=== PATIENT | female | born 2000 | race African-American/Black ===

== ENCOUNTER 2021-06-17 18:16 | Observation (INO) ==
[2021-06-17 20:05] LABS: Basophils % 0.4 % (0.0-0.8); Eosinophils # 0.3 10*3/uL (0.0-0.87); Eosinophils % 2.6 % (0.00-10.9); Hematocrit 40.3 VOL% (35.7-47.0); Hemoglobin 13.4 GM/DL (12.0-16.0); Immature Granulocytes % 0.3 %; Immature Granulocytes Absolute 0.03 #; Lymphocytes # 2.4 10*3/uL (1.4-4.0); Lymphocytes % 22.5 % (21.3-54.2); Mean Corpuscular HGB Conc 33.3 GM/DL (32-36); Mean Corpuscular Volume 91.4 FL (87-102); Mean Platelet Volume 10.6 FL (9.6-12.0); Monocytes % 8.2 % (1.7-12.7); Platelet Count 216 T/CUMM (130-400); Red Blood Count 4.41 MC/CUMM (3.8-5.5); Red Cell Distribution Width 12.8 % (9.3-17.3); White Blood Count 10.6 T/CUMM (4-12)
[2021-06-17 20:14] LABS: Bilirubin,Urine Negative (Negative); Blood, Urine Negative (Negative); Glucose,Urine (UA) Negative (Negative); Ketones,Urine 80 mg/dL (Negative); Mucus,Urine Many /LPF (Occasional); Nitrite,Urine Negative (Negative); Protein,Urine 30 MG/DL; Squamous Epithelial Cell,Urine Moderate /HPF (0-10); Urine Appearance CLOUDY (Clear); Urine Color Yellow (Yellow); Urine Specific Gravity 1.024 (1.001-1.035); Urine Urobilinogen < 2.0 EU/DL (0.2-1.0)
[2021-06-17 20:32] LABS: Alanine Aminotransferase 16 U/L (13-56); Albumin 3.7 G/DL (3.4-5.0); Alkaline Phosphatase 87 U/L (45-117); Aspartate Amino Transferase 20 U/L (0-37); Blood Urea Nitrogen 6 MG/DL (7-18); Calcium 9.4 MG/DL (8.5-10.1); Carbon Dioxide 26 MMOL/L (21-32); Estimated Glom Filtration Rate 140 ML/MIN; Glucose 78 MG/DL (74-106); Osmolality,Calculated 264.2 MOS/KG (273-304); Potassium 3.3 MMOL/L (3.5-5.1); Sodium 134 MMOL/L (136-145); Total Protein 8.4 G/DL (6.4-8.2)
[2021-06-17] MEDS ORDERED: POTASSIUM CHLORIDE 20 MEQ TABLET PO STA (20:34)
[2021-06-17 21:08] LABS: Barbiturates Screen,Urine Negative (Negative); Benzodiazepines Screen,Urine Negative (Negative); Cannabinoid Screen,Urine Positive (Negative); Opiate Screen,Urine Negative (Negative); Phencyclidine Screen,Urine Negative (Negative)
[2021-06-17 21:50] LABS: Acetaminophen < 2.0 UG/ML (10-30); Salicylate < 2.8 MG/DL (2.8-20)
[2021-06-17] MEDS ORDERED: DEXTROSE 50% 25 GM/50 ML VIAL IV PRN (23:49)
[2021-06-17] MEDS ORDERED: GLUCAGON 1 MG VIAL IM PRN (23:49)
[2021-06-18 06:56] LABS: Calcium 8.6 MG/DL (8.5-10.1); Potassium 3.7 MMOL/L (3.5-5.1)
[2021-06-18] MEDS ORDERED: busPIRone 5 MG TABLET PO SCH (11:00)
[2021-06-18 17:18] VITALS: BP 112/65
== END 2021-06-18 17:00 | disposition home or self-care (01) ==
LOC: EDUNIT# → EDBD → N.EDINP 18:16 → N.ED 18:16 → N.OB 06-18 00:37
PROVIDERS: ADMIT Internal Medicine; ATTEND Internal Medicine

== ENCOUNTER 2021-10-21 07:05 | Inpatient (IN) ==
[2021-10-21] MEDS ORDERED: MEPERIDINE 50 MG/1 ML VIAL IV PRN (07:41)
[2021-10-21] MEDS ORDERED: BUTORPHANOL 2 MG/ML VIAL IV PRN (07:41)
[2021-10-21] MEDS ORDERED: ONDANSETRON 4 MG/2 ML VIAL IV PRN ×2 (07:41→14:24)
[2021-10-21] MEDS ORDERED: FAMOTIDINE 20 MG/2 ML VIAL IV ONE (07:43)
[2021-10-21] MEDS ORDERED: ePHEDrine 50 MG/ML VIAL IV PRN (07:43)
[2021-10-21] MEDS ORDERED: hydrOXYzine HCL 25 MG/1 ML VIAL IM PRN (07:43)
[2021-10-21] MEDS ORDERED: PROMETHAZINE 25 MG/1 ML VIAL IM ONE (07:43)
[2021-10-21] MEDS ORDERED: CITRIC ACID/SODIUM CITRATE 30 ML UDCUP PO ONE (07:43)
[2021-10-21] MEDS ORDERED: NALOXONE 0.4 MG/ML VIAL IV PRN (07:43)
[2021-10-21] MEDS ORDERED: diphenhydrAMINE 50 MG/1 ML VIAL IV PRN ×2 (07:43)
[2021-10-21] MEDS ORDERED: ONDANSETRON 4 MG/2 ML VIAL IV ONE (07:43)
[2021-10-21] MEDS ORDERED: LACTATED RINGERS 1,000 ML IV ONE (07:43)
[2021-10-21 07:55] LABS: Basophils % 0.1 % (0.0-0.8); Eosinophils # 0.2 10*3/uL (0.0-0.87); Eosinophils % 1.9 % (0.00-10.9); Hematocrit 34.3 VOL% (35.7-47.0); Immature Granulocytes % 0.3 %; Immature Granulocytes Absolute 0.03 #; Lymphocytes # 2.1 10*3/uL (1.4-4.0); Mean Corpuscular HGB Conc 32.1 GM/DL (32-36); Mean Corpuscular Volume 86.2 FL (87-102); Mean Platelet Volume 10.6 FL (9.6-12.0); Monocytes % 9.4 % (1.7-12.7); Neutrophils % 66.3 % (38.7-73.9); Platelet Count 171 T/CUMM (130-400); Red Blood Count 3.98 MC/CUMM (3.8-5.5); Red Cell Distribution Width 14.2 % (9.3-17.3); White Blood Count 9.5 T/CUMM (4-12)
[2021-10-21] MEDS ORDERED: fentaNYL 2 MCG/ROPIV 0.2% EPID 100 ML EPIDURAL SCH (08:00)
[2021-10-21] MEDS ORDERED: LACTATED RINGERS 1,000 ML IV SCH (08:00)
[2021-10-21 08:12] LABS: Alanine Aminotransferase 22 U/L (13-56); Albumin 2.8 G/DL (3.4-5.0); Alkaline Phosphatase 174 U/L (45-117); Aspartate Amino Transferase 20 U/L (0-37); Bilirubin,Total < 0.39 MG/DL (0.20-1.00); Blood Urea Nitrogen 10 MG/DL (7-18); Calcium 8.6 MG/DL (8.5-10.1); Carbon Dioxide 22 MMOL/L (21-32); Estimated Glom Filtration Rate 140 ML/MIN; Glucose 78 MG/DL (74-106); Potassium 3.8 MMOL/L (3.5-5.1); Sodium 136 MMOL/L (136-145); Total Protein 7.2 G/DL (6.4-8.2)
[2021-10-21] MEDS ORDERED: OXYTOCIN/LR 20 UNIT/1,000 ML BAG IV SCH (09:30)
[2021-10-21] MEDS ORDERED: METHYLERGONOVINE 0.2 MG/1 ML AMP ONE (11:24)
[2021-10-21] MEDS ORDERED: TRANEXAMIC ACID 1,000 MG/10 ML VIAL ONE (11:24)
[2021-10-21] MEDS ORDERED: miSOPROStoL 200 MCG TABLET ONE (11:24)
[2021-10-21] MEDS ORDERED: OXYTOCIN/LR 0 UNIT/0 ML BAG IV ONE (11:24)
[2021-10-21] MEDS ORDERED: SODIUM CHLORIDE 0.9% 0 ML IV ONE (11:24)
[2021-10-21] MEDS ORDERED: CARBOPROST TROMETHAMINE 250 MCG/ML AMP IM ONE (11:25)
[2021-10-21] MEDS ORDERED: LIDOCAINE 1% 50 ML VIAL ONE (11:26)
[2021-10-21 11:57] LABS: Cord Arterial Blood HCO3 21.5 MMOL/L
[2021-10-21 11:59] LABS: Cord Venous Blood HCO3 22.9 MMOL/L; Cord Venous Blood PCO2 50.3 MMHG; Cord Venous Blood PO2 27.4
[2021-10-21] MEDS ORDERED: MEASLES/MUMPS/RUBELLA VACCINE 0.5 ML VIAL SUBCUT ONE (14:24)
[2021-10-21] MEDS ORDERED: ACETAMINOPHEN 325 MG TABLET PO PRN (14:24)
[2021-10-21] MEDS ORDERED: OXYTOCIN/LR 20 UNIT/1,000 ML BAG IV ONE (14:24)
[2021-10-21] MEDS ORDERED: BISACODYL 10 MG SUPP RECTAL PRN (14:24)
[2021-10-21] MEDS ORDERED: HYDROCORTISONE 2.5% RECTAL CREAM 30 GM TUBE TOP PRN (14:24)
[2021-10-21] MEDS ORDERED: RHO(D) IMMUNE GLOBULIN 300 MCG SYRINGE IM ONE (14:24)
[2021-10-21] MEDS ORDERED: DIPH/TET/ACEL PERT BOOSTER VACCINE 0.5 ML VIAL IM ONE (14:24)
[2021-10-21] MEDS ORDERED: LANOLIN 50% CREAM 0.3 OZ TUBE TOP PRN (14:24)
[2021-10-21] MEDS: oxyCODONE/ACETAMINOPHEN 5-325 MG TABLET PO PRN ×2 (16:19→22:26)
[2021-10-21] MEDS: IBUPROFEN 800 MG TABLET PO PRN (16:20)
[2021-10-21] MEDS: DOCUSATE SODIUM 100 MG CAPSULE PO SCH (21:33)
[2021-10-21] MEDS: BENZOCAINE 20%/MENTHOL 0.5% SPRAY 56 GM CAN TOP PRN (21:33)
[2021-10-21] MEDS: WITCH HAZEL PADS 100/JAR TOP PRN (21:33)
[2021-10-22] MEDS: IBUPROFEN 800 MG TABLET PO PRN ×2 (02:32→10:07)
[2021-10-22] MEDS: oxyCODONE/ACETAMINOPHEN 5-325 MG TABLET PO PRN ×3 (05:09→21:24)
[2021-10-22 05:46] LABS: Basophils % 0.1 % (0.0-0.8); Eosinophils # 0.2 10*3/uL (0.0-0.87); Eosinophils % 1.2 % (0.00-10.9); Hematocrit 28.7 VOL% (35.7-47.0); Hemoglobin 9.2 GM/DL (12.0-16.0); Immature Granulocytes % 0.4 %; Immature Granulocytes Absolute 0.05 #; Lymphocytes # 1.7 10*3/uL (1.4-4.0); Lymphocytes % 13.3 % (21.3-54.2); Mean Corpuscular HGB Conc 32.1 GM/DL (32-36); Mean Corpuscular Volume 87.8 FL (87-102); Mean Platelet Volume 11.2 FL (9.6-12.0); Monocytes % 8.6 % (1.7-12.7); Neutrophils % 76.4 % (38.7-73.9); Platelet Count 154 T/CUMM (130-400); Red Blood Count 3.27 MC/CUMM (3.8-5.5); Red Cell Distribution Width 14.5 % (9.3-17.3); White Blood Count 12.8 T/CUMM (4-12)
[2021-10-22] MEDS: busPIRone 15 MG TABLET PO SCH ×3 (08:31→21:25)
[2021-10-22] MEDS: DOCUSATE SODIUM 100 MG CAPSULE PO SCH ×2 (08:31→21:23)
[2021-10-23] MEDS: IBUPROFEN 800 MG TABLET PO PRN ×2 (01:58→08:33)
[2021-10-23 07:26] VITALS: BP 111/53
[2021-10-23] MEDS ORDERED: INFLUENZA VIRUS VACCINE 0.5 ML SYRINGE IM ONE (07:49)
[2021-10-23] MEDS: BENZOCAINE 20%/MENTHOL 0.5% SPRAY 56 GM CAN TOP PRN (08:30)
[2021-10-23] MEDS: DOCUSATE SODIUM 100 MG CAPSULE PO SCH (08:30)
[2021-10-23] MEDS: busPIRone 15 MG TABLET PO SCH (08:30)
[2021-10-23] MEDS: WITCH HAZEL PADS 100/JAR TOP PRN (08:30)
[2021-10-23] MEDS: oxyCODONE/ACETAMINOPHEN 5-325 MG TABLET PO PRN (08:34)
== END 2021-10-23 11:55 | disposition home or self-care (01) | DRG 560 ==
LOC: N.LD 07:05 → N.OB 14:24
PROVIDERS: ADMIT Specialist; ATTEND Specialist